=== PATIENT | female | born 2000 | race Caucasian/White ===

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

== ENCOUNTER 2018-06-23 08:23 | Day surgery (SDC) | END 2018-06-23 11:58 | disposition home or self-care (01) ==

== ENCOUNTER 2018-09-02 17:13 | Emergency (ER) | END 2018-09-02 20:40 | disposition home or self-care (01) ==